=== PATIENT | female | born 1990 | race Caucasian/White ===

== ENCOUNTER 2022-04-06 20:29 | Outpatient (CLI) | payer OTHER, SELFPAY ==
[2022-04-06 21:07] VITALS: BP 128/75; PULSE 96
[2022-04-06 21:16] VITALS: BP 120/74; PULSE 94
[2022-04-06 21:31] VITALS: BP 119/62; PULSE 90
[2022-04-06 21:46] VITALS: BP 110/79; PULSE 92
[2022-04-06 21:49] VITALS: BP 110/79; PULSE 97
== END 2022-04-06 22:00 | disposition home or self-care (01) ==
LOC: ANHOBOP 20:36 → ANHOBPP 04-11 06:53
PROVIDERS: Visit Provider Obstetrics & Gynecology
DX: O13.9 Gestational [pregnancy-induced] hypertension without significant proteinuria, unspecified trimester (principal); Z3A.00 Weeks of gestation of pregnancy not specified
CPT/HCPCS: 59025; 99199